=== PATIENT | male | born 1990 ===

== ENCOUNTER 2022-12-07 13:31 | Emergency (ER) | payer BC ==
[~2022-12-07] VITALS: Ht 188 cm; Wt 100.0 kg
[2022-12-07 13:45] VITALS: BP 160/113; PULSE 108; RESP 16; TEMP 98.6; O2SAT 96
== END 2022-12-08 00:46 | disposition left against medical advice (07) ==
LOC: ER 13:32
DX: R10.9 Unspecified abdominal pain (principal); Z53.21 Procedure and treatment not carried out due to patient leaving prior to being seen by health care provider
CPT/HCPCS: 99281